=== PATIENT | female | born 1965 | race Caucasian/White ===

== ENCOUNTER → 2018-07-03 | Outpatient (CLI) | payer OTHER ==
[~2018-07-03] MED LIST: IOPAMIDOL 370 MG/ML 200 ML INFUS..BTL INJ ONE; SODIUM CHLORIDE 0.9% 50ML 50 ML ONE
[2018-07-03 19:18] LABS: BLOOD UREA NITROGEN 11 mg/dL (7-26); BUN/CREATININE RATIO 14 (6-25); CREATININE, SERUM 0.79 mg/dL (0.57-1.11); EST GLOMERULAR FILTRATION RATE > 60 ML/MIN (60-)
--- NOTE | 2018-07-03 20:25 | Diagnostic Imaging Report ---
EXAMINATION: CT of the abdomen and pelvis with contrast. TECHNIQUE: Spiral CT images of the abdomen and pelvis were performed from the lung bases to the lesser trochanters after the intravenous administration of 100 cc of Isovue 370 and the oral administration of water. Coronal and sagittal reformatted images were obtained. COMPARISON: None. CLINICAL HISTORY:Left flank pain for one day, nausea and vomiting, diffuse abdominal pain DISCUSSION: ABDOMEN/PELVIS: LOWER THORAX:Linear opacity in the right middle lobe and lingula likely reflect subsegmental atelectasis or scarring. HEPATOBILIARY: No focal hepatic lesions. No intra or extrahepatic biliary ductal dilation. GALLBLADDER: Cholecystectomy clips. SPLEEN: No splenomegaly. PANCREAS: No focal masses or ductal dilatation. ADRENALS: No adrenal nodules. KIDNEYS/URETERS: No hydronephrosis, stones, or solid mass lesions. Bilateral subcentimeter hypodense lesions, which are too small to characterize but likely represent small cysts. PELVIC ORGANS/BLADDER: Bladder is unremarkable. Uterus unremarkable. No adnexal masses. PERITONEUM/RETROPERITONEUM: No free air or fluid. LYMPH NODES: No intra-abdominal, retroperitoneal, pelvic or inguinal lymphadenopathy. VESSELS: The celiac trunk,superior and inferior mesenteric and bilateral renal arteries are patent The portal, superior mesenteric and splenic veins are patent. Atherosclerotic calcification of the distal abdominal aorta approximately vessels. GI TRACT: No bowel dilation or evidence of obstruction. Appendix is well identified and normal in caliber. A few diverticula are noted in the sigmoid colon, without diverticulitis. Stomach is unremarkable. LAP band in place at the GE junction, as well as connecting tube and port in the left lower quadrant. No esophageal dilation. BONES AND SOFT TISSUE: No aggressive lytic lesions. Multilevel degenerative disc changes in the lower thoracic and lumbosacral spine. Soft tissues are grossly unremarkable. No soft tissue abnormalities. IMPRESSION: 1. No acute abdominopelvic abnormalities. No bowel dilation or evidence of obstruction. 2.LAP band in place at the GE junction, , with relatively satisfactory position. No esophageal dilation to suggest obstruction/slipped band. Signed by: Dr. Teto Kim M.D. on 07/03/2018 8:21 PM
== END ==
LOC: CT 18:08
PROVIDERS: ATTEND Internal Medicine Gastroenterology
DX: R10.84 Generalized abdominal pain (principal)
CPT/HCPCS: 36415; 74177; 82565; 84520; Q9967